=== PATIENT | female | born 1955 | race African-American/Black ===

== ENCOUNTER 2021-04-23 19:22 | Emergency (ER) | payer BC, MEDICAID ==
[~2021-04-23] VITALS: Ht 177.8 cm; Wt 64.0 kg
[2021-04-23 20:53] LABS: BASOPHILS % 1.1 % (0.0-2.0); EOSINOPHILS % 1.6 % (0.0-5.0); HEMATOCRIT. 41.1 % (36.0-48.0); HEMOGLOBIN. 13.7 g/dL (12.0-16.0); LYMPHOCYTES % 32.3 % (20.0-50.0); MEAN CORPUSCULAR HEMOGLOBIN 29.4 pg (28.0-32.0); MEAN CORPUSCULAR VOLUME 88.1 fL (81.0-99.0); MEAN PLATELET VOLUME 8.2 fl (7.4-10.4); MONOCYTES % 9.3 % (2.0-8.0); NEUTROPHILS % 55.7 % (40.0-76.0); PLATELET 223 x1000/uL (130-400); RED BLOOD CELL COUNT 4.66 mill/uL (4.2-5.4); RED CELL DISTRIBUTION WIDTH 14.4 % (11.6-14.6)
[2021-04-23 21:00] LABS: CHLORIDE 112 mEq/L (98-107)
[2021-04-23 21:05] LABS: PARTIAL THROMBOPLASTIN TIME 27.6 sec (23.4-31.0)
[2021-04-23] MEDS ORDERED: IOHEXOL-350 100 ML BOTTLE ONE (23:00)
[2021-04-23] MEDS ORDERED: ASPIRIN 81MG TABLET PO ONE (23:45)
[2021-04-24 00:12] VITALS: BP 118/76
== END 2021-04-24 00:40 | disposition short-term general hospital (02) ==
LOC: ER 19:22 → CANBEDREQ 04-24 07:14
DX: I63.9 Cerebral infarction, unspecified (principal); G81.91 Hemiplegia, unspecified affecting right dominant side; J35.1 Hypertrophy of tonsils; E78.00 Pure hypercholesterolemia, unspecified; E05.90 Thyrotoxicosis, unspecified without thyrotoxic crisis or storm
CPT/HCPCS: 36415; 70450; 70496; 70498; 71045; 80048; 85025; 85610; 85730; 99291; Q9967